=== PATIENT | female | born 1990 | race Caucasian/White ===

== ENCOUNTER 2017-07-09 13:04 | Emergency (ER) | payer OTHER ==
[2017-07-09 13:16] VITALS: BP 124/70
[2017-07-09] MEDS ORDERED: BSS 1 DROPS, TETRACAINE 0.5% 1 DROPS, FUL-GLO 1 MG OU ONE (13:38)
[2017-07-09] MEDS ORDERED: FUL-GLO OP ONE (13:49)
[2017-07-09] MEDS ORDERED: BSS ONE (13:49)
[2017-07-09] MEDS ORDERED: TETRACAINE 0.5% ONE (13:49)
--- NOTE | 2017-07-09 14:36 | Emergency Department Report ---
Entered by MARÍA GRACE, acting as scribe for SHANTHI BILLY PA. ED Eye Problem HPI - General Chief complaint: Eye Problems Stated complaint: LEFT EYE INJURY Time Seen by Provider: 07/09/17 13:35 Source: patient Mode of arrival: Ambulatory Limitations: No Limitations - History of Present Illness Initial comments: 27 y/o female with no significant PMHx presents to the ED c/o left eye pain that began 1 day ago. Patient states she was attempting to grab a toy microphone from her son and she was subsequently hit in her left eye. Rates pain a 7/10 in severity, which she describes as burning in quality. Aggravated with light exposure and alleviated with dark room. Associated symptoms includes left eye blurry vision, redness, and foreign body sensation, but she denies headache, dizziness, chest pain, SOB, fever, chills, nausea, vomiting, numbness , and tingling. Not UTD with tetanus. NKDA. KEMP chief complaint: eye pain Onset/Timin -: days(s) Location: left eye Place: home If Injury: direct trauma Eye Symptoms: burning, redness, pain, foreign body sensation, blurry vision, photophobia Severity: moderate Severity scale (0 -10): 7 If Pain, Quality: burning Consistency: constant Context: injury Associated Symptoms: none. denies: headache, neck pain, nausea/vomiting, cough , rhinorrhea, fever, shortness of breath Treatments Prior to Arrival: none - Related Data Patient Tetanus UTD: No Previous Rx's Medication Instructions Recorded Last Taken Type Ketorolac Tromethamin 0.4%(Nf) 1 drop OP BID #5 ml 07/09/17 Unknown Rx [Acular Ls 0.4% Ophth Aliza] Tobramycin 0.3% [Tobrex] 1 drop OP TID #1 bottle 07/09/17 Unknown Rx metroNIDAZOLE [Flagyl TAB] 500 mg PO Q12HR #14 tab 07/09/17 Unknown Rx Allergies Allergy/AdvReac Type Severity Reaction Status Date / Time No Known Allergies Allergy Unverified 07/09/17 13:12 ED Review of Systems Comment: All other systems reviewed and negative Constitutional: denies: chills, fever Eyes: eye pain (left), other (left eye blurry vision). denies: eye discharge, vision change ENT: denies: ear pain, throat pain Respiratory: denies: cough, orthopnea, shortness of breath, SOB with exertion, SOB at rest, stridor, wheezing Cardiovascular: denies: chest pain, palpitations, dyspnea on exertion, orthopnea , edema, syncope, paroxysmal nocturnal dyspnea Endocrine: no symptoms reported Gastrointestinal: denies: abdominal pain, nausea, vomiting, diarrhea Genitourinary: denies: urgency, dysuria, discharge Musculoskeletal: denies: back pain, joint swelling, arthralgia Skin: denies: rash, lesions Neurological: denies: headache, weakness, numbness, paresthesias ED Past Medical Hx - Past Medical History Previous Medical History?: No - Surgical History Past Surgical History?: No - Family History Family history: no significant - Social History Smoking Status: Never Smoker Substance Use Type: None - Medications Home Medications: Home Medications Medication Instructions Recorded Confirmed Last Taken Type Ketorolac Tromethamin 0.4%(Nf) 1 drop OP BID #5 ml 07/09/17 Unknown Rx [Acular Ls 0.4% Ophth Aliza] Tobramycin 0.3% [Tobrex] 1 drop OP TID #1 bottle 07/09/17 Unknown Rx metroNIDAZOLE [Flagyl TAB] 500 mg PO Q12HR #14 tab 07/09/17 Unknown Rx ED Physical Exam - General Limitations: No Limitations General appearance: alert, in no apparent distress - Head Head exam: Present: atraumatic, normocephalic - Eye Eye exam: Present: PERRL, EOMI, conjunctival injection, other (top of left eye is tender to palpation, corneal abrasion to left eye near the pupil). Absent: normal appearance, scleral icterus, nystagmus, periorbital swelling, periorbital tenderness Pupils: Present: normal accommodation - Expanded Eye Exam Expanded Eyelids: Normal Inspection: Left Pupils: Regular, Round: Left Sclera/Conjunctival: Normal Inspection: Right, Injection: Left Anterior chamber: Normal Inspection: Bilateral Posterior chamber: Deferred: Bilateral - ENT ENT exam: Present: normal exam, mucous membranes moist, normal external ear exam - Neck Neck exam: Present: normal inspection, full ROM. Absent: tenderness, meningismus, lymphadenopathy - Respiratory Respiratory exam: Present: normal lung sounds bilaterally. Absent: respiratory distress, wheezes, rales, rhonchi, stridor, chest wall tenderness, accessory muscle use, decreased breath sounds - Cardiovascular Cardiovascular Exam: Present: regular rate, normal rhythm, normal heart sounds. Absent: systolic murmur, diastolic murmur - GI/Abdominal GI/Abdominal exam: Present: soft, normal bowel sounds. Absent: distended, tenderness - Extremities Exam Extremities exam: Present: normal inspection, full ROM, normal capillary refill. Absent: tenderness - Back Exam Back exam: Present: normal inspection, full ROM. Absent: tenderness - Neurological Exam Neurological exam: Present: alert, oriented X3, normal gait - Psychiatric Psychiatric exam: Present: normal affect, normal mood - Skin Skin exam: Present: warm, dry, intact. Absent: rash ED Course Vital Signs 07/09/17 13:12 Temperature 98.1 F Pulse Rate 66 Respiratory 16 Rate Blood Pressure 124/70 O2 Sat by Pulse 99 Oximetry ED Medical Decision Making - Medical Decision Making 27 year-old female presents with corneal abrasion to left eye ED course: chong lamp Fluorescein eye stain test performed on patient. Left eye uptake right in the middle of the cornea Vital signs stable patient is in no acute or respiratory distress. Discussed findings with patient about diagnoses. Vision is intact bilaterally Discussed with patient to follow up with supervisor forming and tempering as referred, and to return to the ED if symptoms return or worsen. Patient states understanding and will follow instructions. Pt verbally states understanding and will comply to follow up. ED Disposition Clinical Impression: Corneal abrasion Qualifiers: Encounter type: initial encounter Laterality: left Qualified Code(s): S05.02XA - Injury of conjunctiva and corneal abrasion without foreign body, left eye, initial encounter Disposition: - TO HOME OR SELFCARE Is pt being admited?: No Does the pt Need Aspirin: No Condition: Stable Instructions: Corneal Abrasion (ED) Prescriptions: Ketorolac Tromethamin 0.4%(Nf) [Acular Ls 0.4% Ophth Aliza] 1 drop OP BID #5 ml metroNIDAZOLE [Flagyl TAB] 500 mg PO Q12HR #14 tab Tobramycin 0.3% [Tobrex] 1 drop OP TID #1 bottle Referrals: PRIMARY CARE, [Primary Care Provider] - 3-5 Days DMITRIY BLANCO MD [Staff Physician] - 3-5 Days Forms: Accompanied Note, Work/School Release Form(ED) Time of Disposition: 14:18 This documentation as recorded by the scribSANJAY reilly JASMINE,accurately reflects the service I personally performed and the decisions made by ,SHANTHI BILLY PA.
== END 2017-07-09 14:25 | disposition home or self-care (01) ==
LOC: ED 13:04
DX: S05.02XA Injury of conjunctiva and corneal abrasion without foreign body, left eye, initial encounter (principal); X58.XXXA Exposure to other specified factors, initial encounter; Y93.9 Activity, unspecified; Y92.9 Unspecified place or not applicable; Y99.9 Unspecified external cause status

== ENCOUNTER 2019-03-02 18:24 | Emergency (ER) | payer MEDICAID ==
--- NOTE | 2019-03-02 18:49 | Emergency Department Report ---
Blank Doc - Documentation Documentation: This is a 28-year-old female that presents with vaginal bleeding with n/v. This initial assessment/diagnostic orders/clinical plan/treatment(s) is/are subject to change based on patient's health status, clinical progression and re- assessment by fellow clinical providers in the ED. Further treatment and workup at subsequent clinical providers discretion. Patient/guardians urged not to elope from the ED as their condition may be serious if not clinically assessed and managed. Initial orders include: 1- Patient sent to [facility] for further evaluation and treatment 2- labs 3- UA
[2019-03-02 19:01] VITALS: BP 153/76
[2019-03-02 19:24] LABS: Basophils % (Auto) 0.5 % (0.0-1.8); Eosinophils % (Auto) 0.9 % (0.0-4.3); Hematocrit 34.3 % (30.3-42.9); Hemoglobin 11.9 gm/dl (10.1-14.3); Lymphocytes # (Auto) 1.5 K/mm3 (1.2-5.4); Lymphocytes % (Auto) 27.3 % (13.4-35.0); Mean Corpuscular HGB Conc 35 % (30-34); Mean Corpuscular Volume 90 fl (79-97); Monocytes # (Auto) 0.4 K/mm3 (0.0-0.8); Monocytes % (Auto) 7.9 % (0.0-7.3); Platelet Count 168 K/mm3 (140-440); Red Blood Count 3.82 M/mm3 (3.65-5.03); Red Cell Distribution Width 18.3 % (13.2-15.2)
[2019-03-02 19:33] LABS: Bilirubin,Urine NEG (Negative); Blood,Urine LG (Negative); Color,Urine Yellow (Yellow); Mucus,Urine FEW /HPF; Protein,Urine <15 mg/dL mg/dL (Negative)
--- NOTE | 2019-03-02 20:13 | Emergency Department Report ---
ED Abdominal Pain HPI - General Chief Complaint: Vaginal Bleeding Stated Complaint: POSS MISCARRIAGE Time Seen by Provider: 03/02/19 18:48 Source: patient Mode of arrival: Ambulatory Limitations: No Limitations - History of Present Illness Initial Comments: Patient is a 28-year-old female comes to the ER today stating that she had a positive test at home. She does not know the date of her last menstrual cycle. She thinks she is about 9 weeks. She has an [facility] appointment in the morning. She has had some vaginal bleeding today. She came to the ER for evaluation. This will be her third . She has 2 living children. Patient is ambulatory, nontoxic and in no acute distress in the ER. - Related Data Previous Rx's Medication Instructions Recorded Last Taken Type Ketorolac Tromethamin 0.4%(Nf) 1 drop OP BID #5 ml 07/09/17 Unknown Rx [Acular Ls 0.4% Ophth Aliza] Tobramycin 0.3% [Tobrex] 1 drop OP TID #1 bottle 07/09/17 Unknown Rx metroNIDAZOLE [Flagyl TAB] 500 mg PO Q12HR #14 tab 07/09/17 Unknown Rx Allergies Allergy/AdvReac Type Severity Reaction Status Date / Time No Known Allergies Allergy Unverified 07/09/17 13:12 ED Review of Systems ROS: Stated complaint: POSS MISCARRIAGE Other details as noted in HPI Comment: All other systems reviewed and negative ED Past Medical Hx - Past Medical History Previous Medical History?: No - Surgical History Past Surgical History?: Yes Additional Surgical History: C section 2006 - Family History Family history: no significant - Social History Smoking Status: Unknown if ever smoked Substance Use Type: None - Medications Home Medications: Home Medications Medication Instructions Recorded Confirmed Last Taken Type Ketorolac Tromethamin 0.4%(Nf) 1 drop OP BID #5 ml 07/09/17 Unknown Rx [Acular Ls 0.4% Ophth Aliza] Tobramycin 0.3% [Tobrex] 1 drop OP TID #1 bottle 07/09/17 Unknown Rx metroNIDAZOLE [Flagyl TAB] 500 mg PO Q12HR #14 tab 07/09/17 Unknown Rx ED Physical Exam - General Limitations: No Limitations General appearance: alert, in no apparent distress - Head Head exam: Present: normocephalic - Eye Eye exam: Present: normal appearance, PERRL - ENT ENT exam: Present: mucous membranes moist - Neck Neck exam: Present: normal inspection - Respiratory Respiratory exam: Present: normal lung sounds bilaterally - Cardiovascular Cardiovascular Exam: Present: regular rate - GI/Abdominal GI/Abdominal exam: Present: soft, normal bowel sounds - Extremities Exam Extremities exam: Present: normal inspection, full ROM - Back Exam Back exam: Present: normal inspection, full ROM - Neurological Exam Neurological exam: Present: alert, oriented X3, CN II-XII intact - Psychiatric Psychiatric exam: Present: normal affect, normal mood - Skin Skin exam: Present: warm, dry, intact ED Course Vital Signs 03/02/19 18:49 Temperature 98.6 F Pulse Rate 85 Respiratory 18 Rate Blood Pressure 153/76 O2 Sat by Pulse 98 Oximetry ED Medical Decision Making - Lab Data Result diagrams: 03/02/19 19:08 - Radiology Data Radiology results: report reviewed, image reviewed - Medical Decision Making Vital Signs 03/02/19 18:49 Temperature 98.6 F Pulse Rate 85 Respiratory 18 Rate Blood Pressure 153/76 O2 Sat by Pulse 98 Oximetry Lab Results 03/02/19 03/02/19 03/02/19 Range/Units 19:08 19:08 19:20 WBC 5.4 (4.5-11.0) K/mm3 RBC 3.82 (3.65-5.03) M/mm3 Hgb 11.9 (10.1-14.3) gm/dl Hct 34.3 (30.3-42.9) % MCV 90 (79-97) fl MCH 31 (28-32) pg MCHC 35 H (30-34) % RDW 18.3 H (13.2-15.2) % Plt Count 168 (140-440) K/mm3 Lymph % (Auto) 27.3 (13.4-35.0) % Rawlins % (Auto) 7.9 H (0.0-7.3) % Eos % (Auto) 0.9 (0.0-4.3) % Baso % (Auto) 0.5 (0.0-1.8) % Lymph # 1.5 (1.2-5.4) K/mm3 Raw[place]ins # 0.4 (0.0-0.8) K/mm3 Eos # 0.0 (0.0-0.4) K/mm3 Baso # 0.0 (0.0-0.1) K/mm3 Seg Neutrophils % 63.4 (40.0-70.0) % Seg Neutrophils # 3.4 (1.8-7.7) K/mm3 HCG, Quant 8689 H (0-4) mIU/mL Urine Color Yellow (Yellow) Urine Turbidity Clear (Clear) Urine pH 6.0 (5.0-7.0) Urine Protein <15 mg/dl (Negative) mg/dL Urine Glucose (UA) Neg (Negative) mg/dL Urine Ketones Neg (Negative) mg/dL Urine Blood Lg (Negative) Urine Nitrite Neg (Negative) Urine Bilirubin Neg (Negative) Urine Urobilinogen 2.0 (<2.0) mg/dL Ur Leukocyte Esterase Neg (Negative) Urine WBC (Auto) 4.0 (0.0-6.0) /HPF Urine RBC (Auto) 109.0 (0.0-6.0) /HPF U Epithel Cells (Auto) 4.0 (0-13.0) /HPF Urine Mucus Few /HPF Blood Type 03/02/19 Range/Units 19:45 WBC (4.5-11.0) K/mm3 RBC (3.65-5.03) M/mm3 Hgb (10.1-14.3) gm/dl Hct (30.3-42.9) % MCV (79-97) fl MCH (28-32) pg MCHC (30-34) % RDW (13.2-15.2) % Plt Count (140-440) K/mm3 Lymph % (Auto) (13.4-35.0) % [place] % (Auto) (0.0-7.3) % Eos % (Auto) (0.0-4.3) % Baso % (Auto) (0.0-1.8) % Lymph # (1.2-5.4) K/mm3 [place]ins # (0.0-0.8) K/mm3 Eos # (0.0-0.4) K/mm3 Baso # (0.0-0.1) K/mm3 Seg Neutrophils % (40.0-70.0) % Seg Neutrophils # (1.8-7.7) K/mm3 HCG, Quant (0-4) mIU/mL Urine Color (Yellow) Urine Turbidity (Clear) Urine pH (5.0-7.0) Urine Protein (Negative) mg/dL Urine Glucose (UA) (Negative) mg/dL Urine Ketones (Negative) mg/dL Urine Blood (Negative) Urine Nitrite (Negative) Urine Bilirubin (Negative) Urine Urobilinogen (<2.0) mg/dL Ur Leukocyte Esterase (Negative) Urine WBC (Auto) (0.0-6.0) /HPF Urine RBC (Auto) (0.0-6.0) /HPF U Epithel Cells (Auto) (0-13.0) /HPF Urine Mucus /HPF Blood Type A POSITIVE HCG NOTED A POS US NOTED WITH DEC HR GABRIELLA EXPLAINED ALL OF THIS TO THE PATIENT AND SHE WILL SEE HER OBGYN IN THE AM VSS NAD Critical care attestation.: If time is entered above; I have spent that time in minutes in the direct care of this critically ill patient, excluding procedure time. ED Disposition Clinical Impression: Threatened Disposition: DC- TO HOME OR SELFCARE Is pt being admited?: No Does the pt Need Aspirin: No Condition: Stable Instructions: Spontaneous Miscarriage (ED), Threatened Miscarriage (ED) Additional Instructions: pelvic rest hydrate well with water tylenol for pain HCG 8689 BLOOD TYPE A POS US EDC 11-29; 7W5D FOLLOW UP OBGYN FOR REPEAT LABS OR THURSDAY Referrals: IRIS VALENZUELA MD [Primary Care Provider] - 3-5 Days ZANE ALEJANDRA MD [Staff Physician] - 3-5 Days Time of Disposition: 00:13
--- NOTE | 2019-03-03 00:07 | Ultrasound Report ---
PROCEDURE: US OB TRANSVAGINAL TECHNIQUE: Real-time transvaginal sonography of the uterus, placenta, amniotic fluid, adnexa, and fe tus was performed with image documentation. Measurements were obtained to determine age/size. M -mode Doppler was used to document heartbeat. ADDITIONAL GESTATION: None. HISTORY: vaginal bleeding COMPARISONS: None . FINDINGS: CRL: 14.4 mm, which corresponds to a gestational age of: 7 weeks, 5 days. Yolk Sac: Appropriate for gestational age. . Embryonic Cardiac Activity: 80 bpm . Gestational Sac: Size and shape are appropriate for gestational age Placenta: Normal Amniotic fluid: Appropriate for gestational age. Cervix: Normal. Right Ovary: Normal . Left Ovary: Normal . Estimated delivery date: 10/14/2019 . IMPRESSION: Single live intrauterine gestation at approximately 7 weeks 5 days . EDC by US 10/14/2019 . There is bradycardia. This document is electronically signed by Carmelo Gates MD., March 03 2019 12:06:07 AM ET
--- NOTE | 2019-03-03 00:07 | Ultrasound Report ---
PROCEDURE: US OB <= 14 WEEKS FETUS TECHNIQUE: Real-time transabdominal sonography of the uterus, placenta, amniotic fluid, adnexa, and fetus was performed with image documentation. Measurements were obtained to determine age/size. M-mode Doppler was used to document heartbeat. ADDITIONAL GESTATION: None. HISTORY: vaginal bleeding COMPARISONS: None . FINDINGS: CRL: 14.4 mm, which corresponds to a gestational age of: 7 weeks, 5 days. Yolk Sac: Appropriate for gestational age. . Embryonic Cardiac Activity: 80 bpm . Gestational Sac: Size and shape are appropriate for gestational age Placenta: Normal Amniotic fluid: Appropriate for gestational age. Cervix: Normal. Right Ovary: Normal . Left Ovary: Normal . Estimated delivery date: 10/14/2019 . IMPRESSION: Single live intrauterine gestation at approximately 7 weeks 5 days . EDC by US 10/14/2019 . There is bradycardia. This document is electronically signed by Carmelo Gates MD., March 03 2019 12:05:20 AM ET
== END 2019-03-03 00:25 | disposition home or self-care (01) ==
LOC: ED 18:24
DX: O20.0 Threatened abortion (principal); Z3A.01 Less than 8 weeks gestation of pregnancy
CPT/HCPCS: 36415; 76801; 76817; 81001; 84702; 85025; 86900; 86901; 99284

== ENCOUNTER 2021-03-21 18:57 | Emergency (ER) | payer BC, MEDICAID ==
[2021-03-21 20:38] VITALS: BP 124/72
[2021-03-21 21:19] LABS: Basophils % (Auto) 0.7 % (0.0-1.8); Eosinophils # (Auto) 0.1 K/mm3 (0.0-0.4); Eosinophils % (Auto) 1.3 % (0.0-4.3); Hematocrit 37.7 % (30.3-42.9); Hemoglobin 12.4 gm/dl (10.1-14.3); Lymphocytes # (Auto) 2.1 K/mm3 (1.2-5.4); Lymphocytes % (Auto) 30.3 % (13.4-35.0); Mean Corpuscular HGB Conc 33 % (30-34); Mean Corpuscular Volume 89 fl (79-97); Monocytes # (Auto) 0.4 K/mm3 (0.0-0.8); Monocytes % (Auto) 5.9 % (0.0-7.3); Platelet Count 209 K/mm3 (140-440); Red Blood Count 4.26 M/mm3 (3.65-5.03); Red Cell Distribution Width 17.5 % (13.2-15.2)
[2021-03-21 21:40] LABS: Alanine Aminotransferase 13 units/L (7-56); Albumin 4.8 g/dL (3.9-5); Blood Urea Nitrogen 11 mg/dL (7-17); Hemolysis Index 6
[2021-03-21 21:42] LABS: BUN/Creatinine Ratio 16
[2021-03-21 21:52] LABS: Bacteria,Urine 1+ /HPF (Negative); Bilirubin,Urine NEG (Negative); Blood,Urine LG (Negative); Color,Urine Yellow (Yellow); Mucus,Urine 1+ /HPF
--- NOTE | 2021-03-21 22:00 | Emergency Department Report ---
ED Female HPI - General Chief complaint: Vaginal Bleeding Stated complaint: ABD BLEEDING Time Seen by Provider: 03/21/21 20:37 Source: patient Mode of arrival: Ambulatory Limitations: No Limitations - History of Present Illness Initial comments: Patient is a 30-year-old female presents emergency room with complaints of irregular bleeding. She states that she had 2 menstrual cycles in February and they lasted approximately 5 days. She states that yesterday she began having bleeding again. She denies any heavy bleeding or passing clots. She states occasionally she has mild abdominal cramping, she denies any abdominal pain currently. She denies any pelvic pain, fever, nausea, vomiting, diarrhea, urinary symptoms, abnormal vaginal discharge, itching or burning. Patient states that she had an abnormal Pap smear in 2018 and did not follow-up with [facility]. No allergies to medications. She states that she is only sexually active with her and denies any concerns for STDs. - Related Data Previous Rx's Medication Instructions Recorded Last Taken Type Ketorolac Tromethamin 0.4%(Nf) 1 drop OP BID #5 ml 07/09/17 Unknown Rx [Acular Ls 0.4% Ophth Aliza] Tobramycin 0.3% [Tobrex] 1 drop OP TID #1 bottle 07/09/17 Unknown Rx metroNIDAZOLE [Flagyl TAB] 500 mg PO Q12HR #14 tab 07/09/17 Unknown Rx cephALEXin [Keflex] 500 mg PO BID 7 Days #14 capsule 03/21/21 Unknown Rx medroxyPROGESTERone ACETATE 10 mg PO QDAY 10 Days #10 tablet 03/21/21 Unknown Rx [Provera] Allergies Allergy/AdvReac Type Severity Reaction Status Date / Time No Known Allergies Allergy Unverified 07/09/17 13:12 ED Review of Systems ROS: Stated complaint: ABD BLEEDING Other details as noted in HPI Comment: All other systems reviewed and negative ED Past Medical Hx - Past Medical History Previous Medical History?: No - Surgical History Past Surgical History?: Yes Additional Surgical History: C section 2006 - Social History Smoking Status: Current Every Day Smoker Substance Use Type: Alcohol, Marijuana - Medications Home Medications: Home Medications Medication Instructions Recorded Confirmed Last Taken Type Ketorolac Tromethamin 0.4%(Nf) 1 drop OP BID #5 ml 07/09/17 Unknown Rx [Acular Ls 0.4% Ophth Aliza] Tobramycin 0.3% [Tobrex] 1 drop OP TID #1 bottle 07/09/17 Unknown Rx metroNIDAZOLE [Flagyl TAB] 500 mg PO Q12HR #14 tab 07/09/17 Unknown Rx cephALEXin [Keflex] 500 mg PO BID 7 Days #14 capsule 03/21/21 Unknown Rx medroxyPROGESTERone ACETATE 10 mg PO QDAY 10 Days #10 tablet 03/21/21 Unknown Rx [Provera] ED Physical Exam - General Limitations: No Limitations General appearance: alert, in no apparent distress - Head Head exam: Present: atraumatic, normocephalic - Eye Eye exam: Present: normal appearance - ENT ENT exam: Present: mucous membranes moist - Respiratory Respiratory exam: Present: normal lung sounds bilaterally. Absent: respiratory distress, wheezes, rales, rhonchi, stridor, chest wall tenderness, accessory muscle use, decreased breath sounds, prolonged expiratory - Cardiovascular Cardiovascular Exam: Present: regular rate, normal rhythm, normal heart sounds. Absent: systolic murmur, diastolic murmur, rubs, gallop - GI/Abdominal GI/Abdominal exam: Present: soft, normal bowel sounds. Absent: distended, tenderness, guarding, rebound, rigid - Neurological Exam Neurological exam: Present: alert, oriented X3 - Psychiatric Psychiatric exam: Present: normal affect, normal mood - Skin Skin exam: Present: warm, dry, intact ED Course Vital Signs 03/21/21 20:34 Temperature 98.3 F Pulse Rate 58 L Respiratory 18 Rate Blood Pressure 124/72 O2 Sat by Pulse 100 Oximetry ED Medical Decision Making - Lab Data Result diagrams: 03/21/21 20:54 03/21/21 20:54 Lab Results 03/21/21 03/21/21 03/21/21 Range/Units 20:54 20:54 20:54 WBC 6.8 (4.5-11.0) K/mm3 RBC 4.26 (3.65-5.03) M/mm3 Hgb 12.4 (10.1-14.3) gm/dl Hct 37.7 (30.3-42.9) % MCV 89 (79-97) fl MCH 29 (28-32) pg MCHC 33 (30-34) % RDW 17.5 H (13.2-15.2) % Plt Count 209 (140-440) K/mm3 Lymph % (Auto) 30.3 (13.4-35.0) % Gaines % (Auto) 5.9 (0.0-7.3) % Eos % (Auto) 1.3 (0.0-4.3) % Baso % (Auto) 0.7 (0.0-1.8) % Lymph # (Auto) 2.1 (1.2-5.4) K/mm3 Gaines # (Auto) 0.4 (0.0-0.8) K/mm3 Eos # (Auto) 0.1 (0.0-0.4) K/mm3 Baso # (Auto) 0.0 (0.0-0.1) K/mm3 Seg Neutrophils % 61.8 (40.0-70.0) % Seg Neutrophils # 4.2 (1.8-7.7) K/mm3 Sodium 137 (137-145) mmol/L Potassium 3.9 (3.6-5.0) mmol/L Chloride 101.2 (98-107) mmol/L Carbon Dioxide 26 (22-30) mmol/L Anion Gap 14 mmol/L BUN 11 (7-17) mg/dL Creatinine 0.7 (0.6-1.2) mg/dL Estimated GFR > 60 ml/min BUN/Creatinine Ratio 16 % Glucose 83 (65-100) mg/dL Calcium 9.0 (8.4-10.2) mg/dL Total Bilirubin 0.20 (0.1-1.2) mg/dL AST 19 (5-40) units/L ALT 13 (7-56) units/L Alkaline Phosphatase 45 (35-129) units/L Total Protein 7.8 (6.3-8.2) g/dL Albumin 4.8 (3.9-5) g/dL Albumin/Globulin Ratio 1.6 % HCG, Quant < 2 (0-4) mIU/mL Urine Color (Yellow) Urine Turbidity (Clear) Urine pH (5.0-7.0) Ur Specific [place] (1.003-1.030) Urine Protein (Negative) mg/dL Urine Glucose (UA) (Negative) mg/dL Urine Ketones (Negative) mg/dL Urine Blood (Negative) Urine Nitrite (Negative) Urine Bilirubin (Negative) Urine Urobilinogen (<2.0) mg/dL Ur Leukocyte Esterase (Negative) Urine WBC (Auto) (0.0-6.0) /HPF Urine RBC (Auto) (0.0-6.0) /HPF U Epithel Cells (Auto) (0-13.0) /HPF Urine Bacteria (Auto) (Negative) /HPF Urine Mucus /HPF 03/21/21 Range/Units Unknown WBC (4.5-11.0) K/mm3 RBC (3.65-5.03) M/mm3 Hgb (10.1-14.3) gm/dl Hct (30.3-42.9) % MCV (79-97) fl MCH (28-32) pg MCHC (30-34) % RDW (13.2-15.2) % Plt Count (140-440) K/mm3 Lymph % (Auto) (13.4-35.0) % Gaines % (Auto) (0.0-7.3) % Eos % (Auto) (0.0-4.3) % Baso % (Auto) (0.0-1.8) % Lymph # (Auto) (1.2-5.4) K/mm3 Gaines # (Auto) (0.0-0.8) K/mm3 Eos # (Auto) (0.0-0.4) K/mm3 Baso # (Auto) (0.0-0.1) K/mm3 Seg Neutrophils % (40.0-70.0) % Seg Neutrophils # (1.8-7.7) K/mm3 Sodium (137-145) mmol/L Potassium (3.6-5.0) mmol/L Chloride (98-107) mmol/L Carbon Dioxide (22-30) mmol/L Anion Gap mmol/L BUN (7-17) mg/dL Creatinine (0.6-1.2) mg/dL Estimated GFR ml/min BUN/Creatinine Ratio % Glucose (65-100) mg/dL Calcium (8.4-10.2) mg/dL Total Bilirubin (0.1-1.2) mg/dL AST (5-40) units/L ALT (7-56) units/L Alkaline Phosphatase (35-129) units/L Total Protein (6.3-8.2) g/dL Albumin (3.9-5) g/dL Albumin/Globulin Ratio % HCG, Quant (0-4) mIU/mL Urine Color Yellow (Yellow) Urine Turbidity Slightly-cloudy (Clear) Urine pH 5.0 (5.0-7.0) Ur Specific [place] 1.025 (1.003-1.030) Urine Protein 30 mg/dl (Negative) mg/dL Urine Glucose (UA) Neg (Negative) mg/dL Urine Ketones Neg (Negative) mg/dL Urine Blood Lg (Negative) Urine Nitrite Neg (Negative) Urine Bilirubin Neg (Negative) Urine Urobilinogen 2.0 (<2.0) mg/dL Ur Leukocyte Esterase Sm (Negative) Urine WBC (Auto) 25.0 H (0.0-6.0) /HPF Urine RBC (Auto) 4.0 (0.0-6.0) /HPF U Epithel Cells (Auto) 7.0 (0-13.0) /HPF Urine Bacteria (Auto) 1+ (Negative) /HPF Urine Mucus 1+ /HPF - Medical Decision Making Patient is a 30-year-old female presents emergency room with complaints of irregular bleeding. She states that she had 2 menstrual cycles in February and they lasted approximately 5 days. She states that yesterday she began having bleeding again. She denies any heavy bleeding or passing clots. She states oc casionally she has mild abdominal cramping, she denies any abdominal pain currently. She denies any pelvic pain, fever, nausea, vomiting, diarrhea, urinary symptoms, abnormal vaginal discharge, itching or burning. Patient states that she had an abnormal Pap smear in 2018 and did not follow-up with [facility]. No allergies to medications. She states that she is only sexually active with her and denies any concerns for STDs. VSS. No abdominal tenderness on exam, no guarding, no rebound, rigidity, nor bowel sounds, no peritoneal signs. Labs are normal. hCG is negative. H&H is normal. UA shows evidence of UTI. Discussed all results with patient. Patient given prescription for Keflex and Provera. Discussed in detail with patient the importance of [facility] follow-up and having another Pap smear, she verbalized understanding. Advised patient please take medication as prescribed. increase your water intake. follow up with an [facility]. follow up with a primary care doctor. return to the emergency room for any new or worsening symptoms. Critical care attestation.: If time is entered above; I have spent that time in minutes in the direct care of this critically ill patient, excluding procedure time. ED Disposition Clinical Impression: Abnormal uterine bleeding (AUB) UTI (urinary tract infection) Qualifiers: Urinary tract infection type: acute cystitis Hematuria presence: without hematuria Qualified Code(s): N30.00 - Acute cystitis without hematuria Disposition: TO HOME OR SELFCARE Is pt being admited?: No Does the pt Need Aspirin: No Condition: Stable Instructions: Abnormal Uterine Bleeding, Urinary Tract Infection, Adult, [id number] Additional Instructions: please take medication as prescribed. increase your water intake. follow up with an [facility]. follow up with a primary care doctor. return to the emergency room for any new or worsening symptoms. Prescriptions: cephALEXin [Keflex] 500 mg PO BID 7 Days #14 capsule medroxyPROGESTERone ACETATE [Provera] 10 mg PO QDAY 10 Days #10 tablet Referrals: PRIMARY MD ARRON [Primary Care Provider] - 3-5 Days DEAN SOLIS MD [Staff Physician] - 3-5 Days Time of Disposition: 22:16 Print Language: MONGOLIAN
== END 2021-03-21 22:21 | disposition home or self-care (01) ==
LOC: ED 18:57
DX: N39.0 Urinary tract infection, site not specified (principal); N93.9 Abnormal uterine and vaginal bleeding, unspecified; F17.200 Nicotine dependence, unspecified, uncomplicated; F12.10 Cannabis abuse, uncomplicated; Z98.890 Other specified postprocedural states; Z79.899 Other long term (current) drug therapy
CPT/HCPCS: 36415; 80053; 81001; 84702; 85025; 87086